=== PATIENT | female | born 1995 | race Caucasian/White ===

== ENCOUNTER 2018-12-31 16:33 | Emergency (ER) | payer SELFPAY ==
[2018-12-31 17:01] LABS: Pregnancy Test - Urine (BHCG) Negative (Negative); Pregu Control Background? CLEAR/WHITE (CLR/WHITE); Pregu Control Bar Appear? YES (CONTROL BAR); Specific Gravity 1.025 (1.002-1.036)
[2018-12-31 17:12] LABS: Bilirubin Negative (Negative); Blood, Urine Large (Negative); Glucose, Urine (Dipstick) Negative (Negative); Leukocyte Trace (Negative); Nitrite Negative (Negative); Protein, Urine (Dipstick) 30 mg/dL (Neg-Trace); pH, Urine 7.5 (5.0-9.0)
[2018-12-31 17:29] LABS: Clarity Hazy (Clear)
[2018-12-31 17:29] LABS: #Eosinphils 0.2 thou/uL (0.0-0.7); #Lymphocytes 2.1 thou/uL (1.20-3.40); #Monocytes 0.4 thou/uL (0.11-0.59); #Neutrophils 3.9 thou/uL (1.40-6.50); %Basophils 0.7 % (0.0-1.0); %Eosinophils 3.2 % (0.0-10.0); %Lymphocytes 31.7 % (21.0-51.0); %Monocytes 6.1 % (0.0-10.0); %Neutrophils 58.3 % (42.0-75.0); Hemoglobin 13.7 g/dL (12.0-16.0); Mean Corpuscular HGB CONC 32.3 g/dL (32.0-36.0); Mean Corpuscular Hemoglobin 28.3 pg (27.0-31.0); Mean Corpuscular Volume 87.7 fL (78.0-98.0); Mean Platelet Volume 9.5 fL (7.4-10.4); Platelet Count 236 thou/uL (130-400); RBC Distribution Width 11.5 % (11.5-14.5); Red Blood Cell (RBC) Count 4.85 mill/uL (4.20-5.40); White Blood Cell (WBC) Count 6.8 thou/uL (4.8-10.8)
[2018-12-31 17:31] LABS: Bacteria/HPF 1+ HPF (None Seen); WBC/HPF 0-3 HPF (0-3)
[2018-12-31 17:38] LABS: INR-International Normal Ratio 0.9; PTT 28.3 SEC (22.9-36.1); Prothrombin Time 12.4 SEC (12.0-14.7)
[2018-12-31 17:48] LABS: ALT (SGPT) 18 U/L (8-55); AST (SGOT) 17 U/L (5-34); Albumin 4.5 g/dL (3.5-5.0); Alkaline Phosphatase 83 U/L (40-150); Anion Gap 14 mmol/L (10-20); BUN (Urea Nitrogen) 12 mg/dL (7.0-18.7); Bilirubin, Total 0.4 mg/dL (0.2-1.2); Calc. Creatinine Clearance 0 mL/min (70-130); Calcium 9.6 mg/dL (7.8-10.44); Carbon Dioxide 24 mmol/L (22-29); Chloride 106 mmol/L (98-107); Estimated GFR-MDRD 90; Globulin 3.7 g/dL (2.4-3.5); Glucose 84 mg/dL (70-105); Potassium 3.7 mmol/L (3.5-5.1); Protein, Total 8.2 g/dL (6.0-8.3); Sodium 140 mmol/L (136-145)
== END 2018-12-31 18:06 | disposition home or self-care (01) ==
LOC: MADERS 16:33
DX: N93.9 Abnormal uterine and vaginal bleeding, unspecified (principal); F32.9 Major depressive disorder, single episode, unspecified; F41.9 Anxiety disorder, unspecified; F17.210 Nicotine dependence, cigarettes, uncomplicated; Z79.899 Other long term (current) drug therapy
CPT/HCPCS: 36415; 80053; 81003; 81015; 81025; 85025; 85610; 85730; 99284

== ENCOUNTER 2024-01-27 10:23 | Emergency (ER) | payer MEDICAID, OTHER ==
[~2024-01-27 10:23] MED LIST: Iopamidol 370 76% 100 ML VIAL ONE
[2024-01-27] MEDS ORDERED: Ondansetron PF 4 MG/2 ML Vial ONE (11:12)
[2024-01-27] MEDS ORDERED: Sodium Chloride 0.9% 1,000 ML ONE (11:12)
[2024-01-27] MEDS ORDERED: Morphine 4 MG/ML VIAL ONE (11:18)
[2024-01-27 11:23] LABS: #Basophils 0.1 thou/uL (0.0-0.2); #Eosinphils 0.1 thou/uL (0.0-0.7); #Lymphocytes 1.3 thou/uL (1.20-3.40); #Monocytes 0.3 thou/uL (0.11-0.59); #Neutrophils 5.3 thou/uL (1.40-6.50); %Basophils 0.7 % (0.0-1.0); %Lymphocytes 18.6 % (21.0-51.0); %Monocytes 4.8 % (0.0-10.0); %Neutrophils 74.9 % (42.0-75.0); Hematocrit 39.8 % (36.0-47.0); Mean Corpuscular HGB CONC 32.8 g/dL (32.0-36.0); Mean Corpuscular Hemoglobin 27.9 pg (27.0-31.0); Platelet Count 246 10x3/uL (130-400); RBC Distribution Width 12.6 % (11.5-14.5); Red Blood Cell (RBC) Count 4.68 mill/uL (4.20-5.40)
[2024-01-27 11:31] LABS: Prothrombin Time 13.5 sec (12.0-14.7)
[2024-01-27 11:32] LABS: BHCG - Serum Negative (NEGATIVE); PTT 31.9 sec (22.9-36.1); Pregs Control Background? CLEAR/WHITE (CLR/WHITE); Pregs Control Bar Appear? YES (CONTROL BAR)
[2024-01-27] MEDS ORDERED: fentaNYL 50 mcg/mL 1 mL Vial ONE (11:35)
[2024-01-27 11:37] LABS: ALT (SGPT) 21 U/L (8-55); AST (SGOT) 21 U/L (5-34); Albumin 4.2 g/dL (3.5-5.0); Alkaline Phosphatase 69 U/L (40-110); Anion Gap 12 mmol/L (10-20); BUN (Urea Nitrogen) 13 mg/dL (7.0-18.7); Bilirubin, Total 0.6 mg/dL (0.2-1.2); Calc. Creatinine Clearance 0 mL/min (70-130); Calcium 9.2 mg/dL (7.8-10.44); Carbon Dioxide 22 mmol/L (22-29); Chloride 108 mmol/L (98-107); Estimated GFR 107; Globulin 3.4 g/dL (2.4-3.5); Glucose 93 mg/dL (70-105); Potassium 3.9 mmol/L (3.5-5.1); Protein, Total 7.6 g/dL (6.0-8.3); Sodium 138 mmol/L (136-145)
[2024-01-27 12:13] LABS: Bilirubin Negative (Negative); Blood, Urine Negative (Negative); Glucose, Urine (Dipstick) Negative (Negative); Ketone, Urine Negative (Negative); Leukocyte Moderate (Negative); Nitrite Negative (Negative); Protein, Urine (Dipstick) Negative (Neg-Trace); Specific Gravity, Urine 1.025 (1.005-1.030); Urobilinogen 0.2 mg/dL (Less than 2)
[2024-01-27 12:15] LABS: CAUTI Indications for Culture Pelvic or flank pain; Clarity Hazy (Clear)
[2024-01-27 12:19] LABS: Bacteria/HPF 4+ HPF (None Seen); RBC/HPF 0-3 HPF (0-3)
== END 2024-01-27 13:15 | disposition home or self-care (01) ==
LOC: MADERS 10:23
DX: N39.0 Urinary tract infection, site not specified (principal); F17.290 Nicotine dependence, other tobacco product, uncomplicated
CPT/HCPCS: 36415; 74177; 80053; 81001; 84703; 85025; 85610; 85730; 93005; 96361; 96374; 96375; J2270; J2405; J3010; J7050; Q9967